=== PATIENT | male | born 2000 | race Caucasian/White ===

== ENCOUNTER 2022-06-08 17:22 | Emergency (ER) | payer OTHER ==
[2022-06-08 18:46] LABS: SARS-CoV-2 NAA Rapid Test Not Detected (NotDetected)
[2022-06-08] MEDS ORDERED: Acetaminophen 500 MG TAB ONE (21:33)
== END 2022-06-08 21:36 | disposition home or self-care (01) ==
LOC: CSHERS 17:22
DX: J18.9 Pneumonia, unspecified organism (principal); Z20.822 Contact with and (suspected) exposure to COVID-19
CPT/HCPCS: 71045